=== PATIENT | male | born 1940 | race Caucasian/White ===

== ENCOUNTER 2018-04-07 09:18 | Emergency (ER) | payer MEDICARE ==
[2018-04-07 10:02] LABS: BASO % 0.6 % (0.0-1.0); EOS # 0.1 10^3/uL (0.0-0.50); EOS % 2.7 % (0.0-3.0); HEMATOCRIT 43.5 % (42.0-52.0); HEMOGLOBIN 14.6 g/dl (13.5-17.5); IMMATURE GRANULOCYTE % 0.4 % (0-3.0); LYMPH % 18.9 % (24.0-44.0); MEAN CORPUSCULAR HEMOGLOBIN 29.2 pg (27.0-33.0); MEAN CORPUSCULAR HGB CONC 33.6 g/dl (32.0-36.5); MONO # 0.5 10^3/uL (0.0-0.8); MONO % 8.8 % (0.0-5.0); NEUTROPHILS # 3.5 10^3/uL (1.8-7.7); NEUTROPHILS % 68.6 % (36.0-66.0); PLATELET COUNT, AUTOMATED 202 10^3/uL (150-450); RED CELL DISTRIBUTION WIDTH 13.6 % (11.5-14.5); WHITE BLOOD COUNT 5.1 10^3/uL (4.0-10.0)
[2018-04-07 10:12] LABS: INR 0.97
[2018-04-07 10:13] LABS: PARTIAL THROMBOPLASTIN TIME 26.6 SECONDS (26.8-37.9)
[2018-04-07 10:16] LABS: ALBUMIN 3.8 GM/DL (3.2-5.2); ALBUMIN/GLOBULIN RATIO 1.27 (1.00-1.93); ALKALINE PHOSPHATASE 53 U/L (45-117); ALT/SGPT 45 U/L (12-78); ANION GAP 7 MEQ/L (8-16); AST/SGOT 33 U/L (7-37); BILIRUBIN,DIRECT 0.2 MG/DL (0.0-0.2); BILIRUBIN,TOTAL 0.8 MG/DL (0.2-1.0); BLOOD UREA NITROGEN 21 MG/DL (7-18); CALCIUM LEVEL 8.3 MG/DL (8.8-10.2); CARBON DIOXIDE LEVEL 27 MEQ/L (21-32); CHLORIDE LEVEL 107 MEQ/L (98-107); CPK CREATINE PHOSPHOKINASE 90 U/L (39-308); GLOMERULAR FILTRATION RATE > 60.0 (>42); GLUCOSE, FASTING 153 MG/DL (70-100); LIPASE 98 U/L (73-393); POTASSIUM SERUM 4.6 MEQ/L (3.5-5.1); SODIUM LEVEL 141 MEQ/L (136-145); TOTAL PROTEIN 6.8 GM/DL (6.4-8.2); TROPONIN I 0.05 NG/ML (< 0.10)
[2018-04-07 10:21] LABS: CK-MB VALUE MASS 2.7 NG/ML (<3.6); NT-PRO BNP 66 PG/ML (<450); THYROID STIMULATING HORMONE 0.951 uIU/ML (0.358-3.740)
[2018-04-07] MEDS ORDERED: ISOVUE-370 76% 100ML VIAL (Q9967) As Ordered (10:53)
[2018-04-07 12:15] LABS: CK-MB VALUE MASS 3.1 NG/ML (<3.6); CPK CREATINE PHOSPHOKINASE 87 U/L (39-308); MB/CK RELATIVE INDEX 3.56 (< OR =4)
[2018-04-07 14:31] LABS: CPK CREATINE PHOSPHOKINASE 87 U/L (39-308)
[2018-04-07 14:32] LABS: CK-MB VALUE MASS 4.1 NG/ML (<3.6); MB/CK RELATIVE INDEX 4.71 (< OR =4)
[2018-04-07 14:50] LABS: TROPONIN I 0.46 NG/ML (< 0.10)
[2018-04-07] MEDS: CLOPIDOGREL 300 MG TAB (PLAVIX) PO (15:35)
== END 2018-04-07 16:51 | disposition short-term general hospital (02) ==
LOC: M ED 09:18
DX: I20.0 Unstable angina (principal); I10 Essential (primary) hypertension; K21.9 Gastro-esophageal reflux disease without esophagitis; N40.0 Benign prostatic hyperplasia without lower urinary tract symptoms; Z79.899 Other long term (current) drug therapy
CPT/HCPCS: Q9967